=== PATIENT | male | born 1950 | race Native Hawaiian/Other Pacific Islander ===

== ENCOUNTER → 2017-07-30 | Outpatient (CLI) | payer MEDICARE, BC ==
[2017-07-30 09:31] LABS: Basophils # (A) 0.1 k/uL (0-0.2); Basophils % (A) 1 %; Eosinophils # (A) 0.3 k/uL (0-0.7); Eosinophils % (A) 6 %; HCT 43.1 % (39.0-53.0); HGB 14.1 gm/dL (13.0-17.5); Lymphocytes # (A) 1.6 k/uL (1.0-4.8); Lymphocytes % (A) 37 %; MCH 31.6 pg (25.0-35.0); MCHC 32.8 g/dL (31.0-37.0); MCV 96.3 fL (80.0-100.0); Mean Platelet Volume 7.2; Monocytes # (A) 0.2 k/uL (0-1.0); Monocytes % (A) 6 %; Neutrophils # (A) 2.1 k/uL (1.3-7.7); Neutrophils % (A) 49 %; Platelet Count 210 k/uL (150-450); RBC 4.47 m/uL (4.30-5.90); RDW 13.1 % (11.5-15.5); WBC 4.4 k/uL (3.8-10.6)
[2017-07-30 09:35] LABS: Appearance,Urine Clear (Clear); Bacteria,Urine Rare /hpf; Bilirubin,Urine Negative (Negative); Blood,Urine Small (Negative); Color,Urine Yellow; Glucose,Urine (UA) Negative (Negative); Ketones,Urine Negative (Negative); Leukocyte Esterase,Urine Negative (Negative); Mucus,Urine Rare /hpf; Nitrite,Urine Negative (Negative); PH, Urine 5.5 (5.0-8.0); Protein,Urine Negative (Negative); RBC,Urine 3 /hpf (0-5); Specific Gravity,Urine 1.012 (1.001-1.035); Urobilinogen,Urine <2.0 mg/dL (<2.0); WBC,Urine <1 /hpf (0-5)
[2017-07-30 10:12] LABS: ALT 36 U/L (21-72); AST 24 U/L (17-59); Cholesterol 145 mg/dL (<200); Creatine Kinase 138 U/L (55-170); HDL Cholesterol 51 mg/dL (40-60); LDL Cholesterol,Calculated 82 mg/dL (0-99); Triglycerides 60 mg/dL (<150)
[2017-07-30 17:09] LABS: Vitamin D 25 Hydroxy 31.3 ng/mL (30.0-100.0)
[2017-07-30 17:36] LABS: Hepatitis A Antibody IgM Non-Reactive (Non-Reactive); Hepatitis B Core IgM Non-Reactive (Non-Reactive)
[2017-07-30 18:19] LABS: HIV AB P24 Non-Reactive (Non-Reactive); HIV P24 AG Non-Reactive (Non-Reactive)
== END ==
LOC: LABWHC1 08:53
PROVIDERS: ATTEND Internal Medicine Interventional Cardiology
DX: E78.2 Mixed hyperlipidemia (principal); N40.1 Benign prostatic hyperplasia with lower urinary tract symptoms; E55.9 Vitamin D deficiency, unspecified; E78.00 Pure hypercholesterolemia, unspecified; Z11.59 Encounter for screening for other viral diseases
CPT/HCPCS: 36415; 80061; 80074; 81001; 82306; 82550; 84153; 84450; 84460; 85025; 87390

== ENCOUNTER → 2018-01-21 | Outpatient (CLI) | payer MEDICARE, BC ==
[2018-01-21 16:57] LABS: Albumin 4.2 g/dL (3.80-4.90); Anion Gap 6.4 mmol/L (4.00-12.00); Carbon Dioxide 28.6 mmol/L (21.6-31.8); Globulin 2.1 g/dL (2.1-3.7); LDL Cholesterol,Calculated 72.2 mg/dL (0.0-131.0); Potassium 4.2 mmol/L (3.5-5.5); Total Bilirubin 0.6 mg/dL (0.2-1.2); Total Protein 6.3 g/dL (6.2-8.2); VLDL Calculation 15.8 mg/dL (5.00-40.00)
== END | disposition home or self-care (01) ==
LOC: LABWHC1 08:11
PROVIDERS: ATTEND Internal Medicine Interventional Cardiology
DX: E78.2 Mixed hyperlipidemia (principal)
CPT/HCPCS: 36415; 80053; 80061

== ENCOUNTER → 2018-09-16 | Outpatient (CLI) | payer MEDICARE, BC | END | disposition home or self-care (01) | LOC: LABWHC1 08:12 | PROVIDERS: ATTEND Internal Medicine Interventional Cardiology | DX: E78.2 Mixed hyperlipidemia (principal) | CPT/HCPCS: 36415; 80061; 84450; 84460 ==

== ENCOUNTER → 2019-03-31 | Outpatient (CLI) | payer MEDICARE, BC ==
[2019-03-31 13:42] LABS: African American GFR (CKD) 80.1 (60.0-200.0); Albumin 4.4 g/dL (3.80-4.90); Albumin/Globulin Ratio 2.1 (1.60-3.17); Anion Gap 6.2 mmol/L (4.00-12.00); BUN/Creat Ratio 16.36 Ratio (12.00-20.00); Calcium 9.4 mg/dL (8.7-10.3); Carbon Dioxide 30.8 mmol/L (21.6-31.8); Chol/HDL Ratio 3.04; Globulin 2.1 g/dL (1.6-3.3); LDL Cholesterol,Calculated 85.4 mg/dL (0.0-131.0); Non-African American GFR(CKD) 69.1 (60.0-200.0); Potassium 4.2 mmol/L (3.5-5.5); Total Bilirubin 0.7 mg/dL (0.3-1.2); Total Protein 6.5 g/dL (6.2-8.2); VLDL Calculation 14.6 mg/dL (5.00-40.00)
== END | disposition home or self-care (01) ==
LOC: LABWHC1 09:04
PROVIDERS: ATTEND Nurse Practitioner Adult Health
DX: E78.2 Mixed hyperlipidemia (principal); I25.10 Atherosclerotic heart disease of native coronary artery without angina pectoris; I48.0 Paroxysmal atrial fibrillation
CPT/HCPCS: 36415; 80053; 80061

== ENCOUNTER → 2019-09-04 | Outpatient (CLI) | payer MEDICARE, BC ==
[2019-09-04 12:50] LABS: African American GFR (CKD) 72.1 (60.0-200.0); Albumin 4.2 g/dL (3.80-4.90); Anion Gap 9.2 mmol/L (4.00-12.00); BUN/Creat Ratio 17.5 Ratio (12.00-20.00); Calcium 8.8 mg/dL (8.7-10.3); Carbon Dioxide 24.8 mmol/L (21.6-31.8); Chol/HDL Ratio 3.19; Globulin 2.1 g/dL (1.6-3.3); LDL Cholesterol,Calculated 67.2 mg/dL (0.0-131.0); Non-African American GFR(CKD) 62.2 (60.0-200.0); Potassium 4.4 mmol/L (3.5-5.5); Total Bilirubin 0.6 mg/dL (0.2-1.2); Total Protein 6.3 g/dL (6.2-8.2); VLDL Calculation 26.8 mg/dL (5.00-40.00)
== END | disposition home or self-care (01) ==
LOC: LABWHC1 07:05
PROVIDERS: ATTEND Internal Medicine Interventional Cardiology
DX: E78.2 Mixed hyperlipidemia (principal)
CPT/HCPCS: 36415; 80053; 80061

== ENCOUNTER 2019-11-09 06:06 | Day surgery (SDC) | payer MEDICARE, BC ==
[2019-11-06 10:26] VITALS: BMI 23.3
[~2019-11-09 06:06] MED LIST: SODIUM CHLORIDE 0.9% 1,000 ML IV SCH
[2019-11-09 06:34] VITALS: TEMP 98.4
[2019-11-09] MEDS ORDERED: SODIUM CHLORIDE 0.9% 500 ML 500 ML IV ONE (06:41)
[2019-11-09 06:53] LABS: Potassium 3.9 mmol/L (3.5-5.1)
[2019-11-09] MEDS ORDERED: PROPOFOL 10 MG/ML 20 ML VIAL IV ONE (07:22)
[2019-11-09] MEDS: BENZOCAINE SPRAY 1 CAN TOPICAL ONE ×2 (07:28→07:44)
[2019-11-09] MEDS ORDERED: SODIUM CHLORIDE 0.9% 1,000 ML IV SCH (08:15)
[2019-11-09] MEDS ORDERED: SODIUM CHLORIDE 0.9% 1,000 ML IV ONE (08:41)
[2019-11-09] MEDS ORDERED: METOPROLOL TARTRATE 25 MG TAB PO SCH (09:00)
[2019-11-09] MEDS ORDERED: RIVAROXABAN 20 MG TAB PO SCH (09:00)
[2019-11-09] MEDS ORDERED: lisinopriL 10 MG TAB PO SCH (09:00)
[2019-11-09] MEDS ORDERED: NON FORMULARY DRUG (Aspirin [Adult Low Dose Aspirin Ec] 81 MG) PO SCH (09:00)
[2019-11-09] MEDS ORDERED: FLECAINIDE 50 MG TAB PO SCH (09:00)
[2019-11-09] MEDS ORDERED: LANSOPRAZOLE 15 MG PO SCH (09:00)
[2019-11-09] MEDS ORDERED: NON FORMULARY DRUG (Magnesium Oxide 250 MG) PO SCH (09:00)
--- NOTE | 2019-11-09 09:18 | ECHOT ---
TRANSESOPHAGEAL ECHOCARDIOGRAM INDICATION: Atrial fibrillation. PROCEDURE: After explaining the procedure to the patient, its risks and complications, his blood pressure, heart rate, O2 saturation was monitored. The throat was sprayed with Cetacaine. He received sedation per Anesthesia Department. The probe was introduced into the esophagus without difficulty. Images were obtained. Following that, the probe was removed. There was no immediate complication. FINDINGS: Biatrial enlargement was noted, spontaneous contrast was noted in the left atrium and left atrial appendage is normal. Left ventricular size and systolic function normal. The aortic valve revealed mild thickening of the aortic valve leaflets. The mitral valve appears to be normal. Left ventricular size and systolic function normal. The descending thoracic aorta appears to be normal. No pericardial effusion was noted, contrast bubble study revealed no shunting across the interatrial septum. Pulse wave and Color Doppler obtained, revealed mild to moderate mitral with mild tricuspid regurgitation. There was no shunting by color Doppler study. CONCLUSION: 1. Biatrial enlargement with normal appearance of left atrial appendage. 2. Normal left ventricular size and systolic function. 3. Mild to moderate mitral with mild tricuspid regurgitation. 4. No shunting across the interatrial septum. 5. Normal appearance of the descending thoracic aorta. MMODL / IJN: [id number] /
[2019-11-09 09:29] VITALS: RESP 16
--- NOTE | 2019-11-09 10:03 | CE ---
CARDIAC ELECTROPHYSIOLOGY REPORT INDICATION: Atrial fibrillation. PROCEDURE: After explaining the procedure to the patient, its risks and complications, after obtaining sedated state by the Anesthesia Department, synchronized biphasic cardioversion utilizing 200 joules was performed with jehovah's witness of sinus rhythm. Subsequently, the patient went back into atrial fibrillation. Another cardioversion was able to restore normal sinus rhythm, but that did not persist. There was no immediate complication. ELIECER / HERMILAN: [id number] / MTDD
[2019-11-09 10:11] VITALS: BP 141/89; PULSE 72
[2019-11-09] MEDS ORDERED: ATORVASTATIN 80 MG TAB PO SCH (21:00)
== END 2019-11-09 10:06 | disposition home or self-care (01) ==
LOC: CATHCVL 06:06
PROVIDERS: ATTEND Internal Medicine Interventional Cardiology
DX: I48.11 Longstanding persistent atrial fibrillation (principal); I08.1 Rheumatic disorders of both mitral and tricuspid valves; I10 Essential (primary) hypertension; I25.10 Atherosclerotic heart disease of native coronary artery without angina pectoris; E78.2 Mixed hyperlipidemia; Z79.82 Long term (current) use of aspirin; Z79.01 Long term (current) use of anticoagulants; Z79.899 Other long term (current) drug therapy; Z98.890 Other specified postprocedural states; Z87.891 Personal history of nicotine dependence; Z90.49 Acquired absence of other specified parts of digestive tract; Z95.5 Presence of coronary angioplasty implant and graft; K21.9 Gastro-esophageal reflux disease without esophagitis
CPT/HCPCS: 93312; 93320; 93325; 92960; 80048; J2704

== ENCOUNTER → 2019-11-21 | Day surgery (SDC) | payer MEDICARE, BC ==
[2019-11-20 08:18] VITALS: BMI 23.5
[~2019-11-21] MED LIST changes: +ASPIRIN 81 MG PO SCH; +ATORVASTATIN 80 MG TAB PO SCH; +FLECAINIDE 50 MG TAB PO SCH; +LACTATED RINGERS 1,000 ML IV SCH; +LIDOCAINE 1% INJ 10MG/ML (20 ML MDV) ONE; +MAGNESIUM OXIDE 400 MG TAB PO SCH; +PANTOPRAZOLE 40 MG TABLET PO SCH; +PROPOFOL 10 MG/ML 20 ML VIAL IV ONE; +RIVAROXABAN 20 MG TAB PO SCH; +lisinopriL 10 MG TAB PO SCH
[2019-11-21 06:31] VITALS: TEMP 98.3
--- NOTE | 2019-11-21 07:41 | CE ---
CARDIAC ELECTROPHYSIOLOGY REPORT CARDIOVERSION PROCEDURE NOTE: INDICATION: Atrial fibrillation. PROCEDURE: After explaining the procedure to the patient, its risks and the complications and after obtaining sedated state by the anesthesia department, a synchronized biphasic cardioversion using 200 joules was performed with mandaeism of normal sinus rhythm. There was no immediate complication. ELIECER / ROSELINE: [id number] /
[2019-11-21 07:46] VITALS: RESP 16
[2019-11-21 10:10] VITALS: BP 139/92; PULSE 56
== END | disposition home or self-care (01) ==
LOC: CATHCVL 06:04
PROVIDERS: ATTEND Internal Medicine Interventional Cardiology
DX: I48.11 Longstanding persistent atrial fibrillation (principal); I25.10 Atherosclerotic heart disease of native coronary artery without angina pectoris; E78.2 Mixed hyperlipidemia; I10 Essential (primary) hypertension; K21.9 Gastro-esophageal reflux disease without esophagitis; Z79.82 Long term (current) use of aspirin; Z79.01 Long term (current) use of anticoagulants; Z79.899 Other long term (current) drug therapy; Z90.49 Acquired absence of other specified parts of digestive tract; Z95.5 Presence of coronary angioplasty implant and graft; Z98.890 Other specified postprocedural states; Z87.891 Personal history of nicotine dependence
CPT/HCPCS: 92960; J2001; J2704

== ENCOUNTER 2020-02-12 08:08 | Day surgery (SDC) | payer MEDICARE, BC ==
[2020-02-06 13:09] VITALS: BMI 23.8
[~2020-02-12 08:08] MED LIST changes: -ASPIRIN 81 MG PO SCH; -ATORVASTATIN 80 MG TAB PO SCH; -FLECAINIDE 50 MG TAB PO SCH; -LACTATED RINGERS 1,000 ML IV SCH; -LIDOCAINE 1% INJ 10MG/ML (20 ML MDV) ONE; -MAGNESIUM OXIDE 400 MG TAB PO SCH; -PANTOPRAZOLE 40 MG TABLET PO SCH; -PROPOFOL 10 MG/ML 20 ML VIAL IV ONE; -RIVAROXABAN 20 MG TAB PO SCH; -lisinopriL 10 MG TAB PO SCH
[2020-02-12] MEDS ORDERED: SODIUM CHLORIDE 0.9% 1,000 ML IV ONE (08:22)
[2020-02-12 08:39] LABS: Basophils # (A) 0.1 k/uL (0-0.2); Basophils % (A) 1 %; Eosinophils # (A) 0.3 k/uL (0-0.7); Eosinophils % (A) 4 %; HCT 47.1 % (39.0-53.0); HGB 15.9 gm/dL (13.0-17.5); Lymphocytes # (A) 2.5 k/uL (1.0-4.8); Lymphocytes % (A) 34 %; MCH 31.8 pg (25.0-35.0); MCHC 33.6 g/dL (31.0-37.0); MCV 94.6 fL (80.0-100.0); Mean Platelet Volume 7.7; Monocytes # (A) 0.4 k/uL (0-1.0); Monocytes % (A) 5 %; Neutrophils % (A) 54 %; Platelet Count 225 k/uL (150-450); RBC 4.98 m/uL (4.30-5.90); RDW 12.6 % (11.5-15.5); WBC 7.5 k/uL (3.8-10.6)
[2020-02-12 09:03] LABS: Calcium 8.8 mg/dL (8.4-10.2); Potassium 3.9 mmol/L (3.5-5.1)
[2020-02-12] MEDS ORDERED: HEPARIN SODIUM,PORCINE 10,000 UNIT/ML 1 ML VIAL ONE (11:43)
[2020-02-12] MEDS ORDERED: GLYCOPYRROLATE 0.2 MG/ML 2 ML VIAL ONE (11:43)
[2020-02-12] MEDS ORDERED: SUCCINYLCHOLINE CHLORIDE 100 MG/5 ML SYR IV ONE (11:43)
[2020-02-12] MEDS ORDERED: PHENYLEPHRINE-0.9% NACL SYG 1 MG/10 ML SYRINGE ONE (11:43)
[2020-02-12] MEDS ORDERED: PROPOFOL 10 MG/ML 20 ML VIAL IV ONE (11:43)
[2020-02-12] MEDS ORDERED: FUROSEMIDE 10 MG/ML 2 ML VIAL ONE (11:43)
[2020-02-12] MEDS ORDERED: PROTAMINE SULFATE 10 MG/ML 25 ML VIAL IV ONE (11:43)
[2020-02-12] MEDS ORDERED: fentaNYL (PF) 50 MCG/ML 2 ML AMP ONE (11:43)
[2020-02-12] MEDS ORDERED: MIDAZOLAM 2 MG/2 ML VIAL ONE (11:43)
[2020-02-12] MEDS ORDERED: LIDOCAINE 1% INJ 10MG/ML (20 ML MDV) ONE (12:16)
[2020-02-12] MEDS ORDERED: LIDOCAINE 1% INJ 10MG/ML (20 ML MDV) SQ ONE (12:23)
[2020-02-12] MEDS ORDERED: HEPARIN SOD,PORK IN 0.45% NACL 25,000 UNIT in 0.45% NACL 1 250ML.BAG IV ONE (12:28)
[2020-02-12] MEDS ORDERED: HEPARIN SODIUM (1,000 UNIT/ML) 1,000 UNIT in SODIUM CHLORIDE 0.9% 1,000 ML IRRIGATION ONE (12:54)
[2020-02-12] MEDS ORDERED: IOPAMIDOL-370 100ML BTL INJ ONE (14:33)
[2020-02-12] MEDS ORDERED: PROTAMINE SULFATE 10 MG/ML 5 ML VIAL IV ONE (15:40)
[2020-02-12] MEDS ORDERED: HYDROcodone/APAP 5-325MG 1 EACH TAB PO PRN (15:55)
[2020-02-12] MEDS ORDERED: ACETAMINOPHEN IV (For NPO) 1,000 MG in EMPTY BAG 1 BAG IVPB ONE (15:55)
[2020-02-12] MEDS ORDERED: ACETAMINOPHEN TAB 325 MG TAB PO PRN (15:55)
--- NOTE | 2020-02-12 16:07 | P.EPPROC ---
- EP Procedure Note Electrophysiology Procedure Note: Diagnosis Atrial fibrillation, symptomatic, refractory to therapy Persistent Result No left atrial appendage mass seen on intracardiac echo Successful A. fib ablation/pulmonary vein isolation of all veins using cryo- ablation Complete entrance block in all 4 veins confirmed No evidence for phrenic nerve injury Linear ablation along the posterior septum with complete block along the line Linear ablation along the roof with complete block along the line Esophageal deflection YES Patient remained in atrial fibrillation following PVI and linear A. fib ablation of the septum and the roof Mild organization of A. fib Electrical cardioversion with a synchronized shock across the chest YES Procedure details Patient was brought to the EP lab in a fasting state. Written informed consent was obtained prior to the procedure. Procedure performed under general anesthesia After initial muscle relaxant use, muscle relaxants were not given thereafter in order to assess phrenic nerve during procedure. Patient prepped and draped as per protocol Full cryo-set up with standard preparation of the cryoablation tools done. Femoral Venous access obtained on the right and left groins Venous and arterial Sheaths placed. Diagnostic catheters for the high right atrium, phrenic nerve stimulation and pacing, His bundle, RV and coronary sinus placed Intracardiac echo catheter placed. Long sheath placed in the right atrium Left and right transseptal catheterization performed under intracardiac echo guidance. Intravenous heparin with aCT above 300 Later, catheter positioning and balloon positioning in the left atrium, under intracardiac echo guidance Diagnostic EP study with Drug infusion Coronary sinus pacing and recording Baseline measurements Sinus cycle length 1440, W[place] interval 163 ms, QRS 92 ms AH 60 ms, HV 31 ms Atrial pacing performed from the high right atrium and the coronary sinus Sinus node recovery time 1639 ms. Corrected sinus recovery time normal AV node Wenckebach block 410 ms RV pacing, VAAV Wenckebach block 460 ms Transseptal catheterization performed RA pressure 9/3/6 LA pressure 14/4/9 Transseptal catheterization performed with standard sheath. The cryoablation sheath was then placed with an over the wire exchange without any acute complications. All 4 pulmonary veins were isolated in the following sequence: Left superior followed by left inferior followed by right superior followed by right inferior The cryo-ablation balloon was placed at the os of each vein 1.5 mL of IV dye was injected to confirm an occluded vein Goal during cryoablation was to achieve complete occlusion of the pulmonary vein, achieve -30 degrees C at 30 seconds and achieve -40 degrees C at 60 seconds and a time to effect of less than 60-90 seconds, . If not the balloon was repositioned to obtain this result After completion of Cryoblation with durations from 180-240 seconds, entrance block was confirmed with the Attain circular catheter in a roving fashion around the antrum of the pulmonary veins Phrenic nerve pacing was performed from the SVC, right innominate vein area and diaphragm voltage was monitored. Diaphragmatic contractions were also monitored manually for strength of contraction. Parameter goals for each cryo freeze Complete occlusion of the appropriate vein -30 degrees C by 30 seconds -40 degrees C by 60 seconds Minimum between minus 40-55 degrees C Thaw time greater than 10 seconds Balloon visualized by intracardiac echo The esophagus was intubated. Esophageal Temperature monitoring with a CIRCA catheter formed. Esophageal deflection for hypothermia of the esophagus below 30 degrees C Left superior pulmonary vein, common left-sided vein Complete isolation, entrance block Left inferior pulmonary vein, common left-sided vein Complete isolation, entrance block Right superior pulmonary vein, during phrenic nerve pacing Complete isolation, entrance block Right inferior pulmonary vein, during phrenic nerve pacing Complete isolation, entrance block At the end of the procedure the Achieve catheter was once again used to check for entrance block Phrenic nerve stimulation was performed to confirm diaphragmatic stimulation the end of the procedure Cine fluoroscopy was performed at the very end of the procedure to confirm movement of both diaphragms with inspiration and expiration 3-D electro anatomic mapping of the left atrium Complete isolation of all 4 pulmonary veins informed with Holbrook mapping Linear ablation along fractionated electrograms along the posterior septum just behind the transseptal site. RF ablation was performed from the roof down to the lower septum and connected to the RIP the. The segment posterior to this was completely isolated Linear ablation along the roof performed along fractionated signals Complete block demonstrated Complete scar demonstrated At the end of the procedure the patient was extubated Heparin was reversed Venous sheaths were removed and hemostasis assured Procedures performed (PVI - CRYO Ablation) Diagnostic EP study CS pacing and recording Left and right transseptal catheterization 3D mapping) Intracardiac echocardiography Pulmonary vein isolation with transseptal and comprehensive EPS, 29500 Left atrial roof line, +67020 Linear ablation, left atrium, septum, +[id number] Electrical cardioversion with a synchronized shock across the chest [id number]
--- NOTE | 2020-02-12 16:09 | P.PRLE ---
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 He has a fairly dilated left atrium. An persistent atrial fibrillation. He will continue xarelto and all his other cardiac medications and will continue to follow with you and Dr. Delaney as before Thank you for entrusting me with the care of the patient Warm regards Sincerely Edil Burns
[2020-02-12] MEDS ORDERED: LACTATED RINGERS 1,000 ML IV ONE (16:28)
[2020-02-12] MEDS ORDERED: ATORVASTATIN 80 MG TAB PO SCH (21:00)
[2020-02-12] MEDS ORDERED: RIVAROXABAN 20 MG TAB PO SCH (21:00)
[2020-02-13] MEDS ORDERED: PANTOPRAZOLE 40 MG TABLET PO SCH (07:30)
[2020-02-13] MEDS ORDERED: lisinopriL 10 MG TAB PO SCH (09:00)
[2020-02-13] MEDS ORDERED: ASPIRIN 81 MG PO SCH (09:00)
[2020-02-13 09:04] VITALS: BP 113/69; PULSE 60; RESP 16; TEMP 98.3
--- NOTE | 2020-02-14 10:12 | P.DS ---
Providers Attending physician: Edil Burns Primary care physician: Navi Holder MD Hospital Course: Patient evaluated on February 12, the day following his A. fib ablation Patient is doing well. No chest discomfort no dizziness lightheadedness no palpitations. His groins of healed well no hematoma no tenderness His throat is slightly sore but he has no swallowing problems no dysphagia no odynophagia On examination he is afebrile 98.3F, pulse rate in the 60s normal respirations Blood pressure 115 07 4 mmHg Impression Persistent atrial fibrillation Dilated left atrium Status post PVI and linear ablation of the left atrium in the posterior septum and left atrial roof Patient remained in a slightly more organized atrial fibrillation thereafter Electrical cardioversion performed in sinus rhythm restored Plan Continue anticoagulation until current medications and follow with Dr. Delaney in a week Patient Condition at Discharge: Stable Plan - Discharge Summary Discharge Rx Participant: No New Discharge Prescriptions: Continue RX: Lansoprazole [Prevacid] 15 mg PO DAILY RX: Atorvastatin [Lipitor] 80 mg PO HS #30 tab RX: lisinopriL [Zestril] 10 mg PO DAILY #30 tab RX: Nitroglycerin Sl Tabs [Nitrostat] 0.4 mg SUBLINGUAL Q5M PRN #25 tab PRN Reason: Chest Pain RX: Rivaroxaban [Xarelto] 20 mg PO HS RX: Magnesium Oxide [Mag-Ox] 250 mg PO DAILY RX: Aspirin [Adult Low Dose Aspirin EC] 81 mg PO DAILY Metoprol Tartrate 1 tab PO BID Discharge Medication List RX: Lansoprazole [Prevacid] 15 mg PO DAILY 12/24/15 [History] RX: Atorvastatin [Lipitor] 80 mg PO HS #30 tab 12/26/15 [Rx] RX: Nitroglycerin Sl Tabs [Nitrostat] 0.4 mg SUBLINGUAL Q5M PRN #25 tab 12/26/15 [Rx] RX: lisinopriL [Zestril] 10 mg PO DAILY #30 tab 12/26/15 [Rx] RX: Aspirin [Adult Low Dose Aspirin EC] 81 mg PO DAILY 11/06/19 [History] RX: Magnesium Oxide [Mag-Ox] 250 mg PO DAILY 11/06/19 [History] RX: Rivaroxaban [Xarelto] 20 mg PO HS 11/06/19 [History] Metoprol Tartrate 1 tab PO BID 02/06/20 [History] Follow up Appointment(s)/Referral(s): Sofia Delaney MD [STAFF PHYSICIAN] - 02/20/20 10:15 am Patient Instructions/Handouts: A-fib (Atrial Fibrillation) (DC), Cardiac Ablation (DC) Activity/Diet/Wound Care/Special Instructions: Post EP study - Ablation instructions 1. Keep access sites dry for 2 days. 2. No heavy lifting or straining for 2 days. 3. Avoid bending the hips repeatedly for 2 days. 4. You may go up and down stairs slowly Call if the following is noted 1. Bleeding, increasing swelling or pain at the access sites. 2. Increasing chest discomfort, especially upon taking a deep breath. 3. Increasing shortness of breath, at rest or with exertion. 4. Undue cough / phlegm 5. Difficulty or pain while swallowing. 6. Pain or change in color in the extremities. 7. Fever, chills, rigors. 8. Increasing headache or neurologic symptoms. 9. Dizziness, fainting, palpitations Do not stop XareltoFollow Dr. Delaney/nurse practitioner Maureen in 1-2 weeks
== END 2020-02-13 14:02 ==
LOC: CATHEP 08:08 → 1SOBS 16:38 → CATHEP 02-13 14:02
PROVIDERS: ATTEND Internal Medicine Clinical Cardiac Electrophysiology
DX: I48.19 Other persistent atrial fibrillation (principal); I51.7 Cardiomegaly; I10 Essential (primary) hypertension; E78.5 Hyperlipidemia, unspecified; I25.2 Old myocardial infarction; Z95.5 Presence of coronary angioplasty implant and graft; Z87.891 Personal history of nicotine dependence; F41.9 Anxiety disorder, unspecified; K21.9 Gastro-esophageal reflux disease without esophagitis; Z79.01 Long term (current) use of anticoagulants; Z79.82 Long term (current) use of aspirin; Z79.899 Other long term (current) drug therapy
CPT/HCPCS: 85347; 93623; 93662; 93613; 93656; 93657; 80048; 85025; C1769 ×5; C1894 ×2; C1730 ×2; C1759; C1893; C1733; C1766; C1732; J2720; J2250; J1644 ×3; J1940; J2001; J3010; J0131; J2370; J0330; J2704; Q9967

== ENCOUNTER → 2020-03-06 | Outpatient (CLI) | payer MEDICARE, BC ==
[2020-03-06 14:48] LABS: African American GFR (CKD) 89.2 (60.0-200.0); Albumin/Globulin Ratio 2.11 (1.60-3.17); Anion Gap 4.9 mmol/L (4.00-12.00); Calcium 8.7 mg/dL (8.7-10.3); Carbon Dioxide 27.1 mmol/L (21.6-31.8); Chol/HDL Ratio 3.2; Globulin 1.9 g/dL (1.6-3.3); Potassium 4.2 mmol/L (3.5-5.5); Total Bilirubin 0.8 mg/dL (0.3-1.2); Total Protein 5.9 g/dL (6.2-8.2)
== END | disposition home or self-care (01) ==
LOC: LABWHC1 07:53
PROVIDERS: ATTEND Nurse Practitioner Adult Health
DX: I10 Essential (primary) hypertension (principal); E78.2 Mixed hyperlipidemia
CPT/HCPCS: 36415; 80053; 80061

== ENCOUNTER 2023-06-27 06:24 | Day surgery (SDC) | payer MEDICARE, BC ==
[2023-06-27 06:59] VITALS: BP 158/82; PULSE 66; RESP 18; TEMP 97.3
[2023-06-27] MEDS: SIMETHICONE 40 MG/0.6 ML DROPS 2,000 MG/30 ML BOTTLE PO ONE (07:15)
== END 2023-06-27 07:28 | disposition home or self-care (01) ==
LOC: ORWHC2ENDO 06:24
PROVIDERS: ATTEND Internal Medicine Gastroenterology
DX: K92.1 Melena (principal)
CPT/HCPCS: 91110

== ENCOUNTER → 2024-05-28 | Outpatient (CLI) | payer MEDICARE, BC ==
[2024-05-28 20:46] LABS: HCT 43.1 % (39.6-50.0); HGB 14.4 g/dL (13.0-17.0); MCH 31.9 pg (27.0-32.0); MCHC 33.4 g/dL (32.0-37.0); MCV 95.4 FL (80.0-97.0); Mean Platelet Volume 11.2 FL (9.5-12.2); NRBC Per 100 WBC 0 X 10*3/uL (0.00-0.01); Platelet Count 204 X 10*3/uL (140-440); RBC 4.52 X 10*6/uL (4.40-5.60); RDW 13.1 % (11.5-14.5); WBC 8.86 X 10*3/uL (4.50-10.00)
[2024-05-28 21:01] LABS: Blood Urea Nitrogen 14.8 mg/dL (9.0-27.0); Carbon Dioxide 28.4 mmol/L (21.6-31.8); Chloride 107 mmol/L (96-109); Potassium 4.2 mmol/L (3.5-5.5); Sodium 145 mmol/L (135-145)
== END | disposition home or self-care (01) ==
LOC: LABPAT 15:27
PROVIDERS: ATTEND Internal Medicine Interventional Cardiology
DX: Z01.812 Encounter for preprocedural laboratory examination (principal); R07.9 Chest pain, unspecified
CPT/HCPCS: 80051; 82565; 84520; 85027

== ENCOUNTER 2024-06-07 05:37 | Day surgery (SDC) | payer MEDICARE, BC ==
[2024-06-05 12:09] VITALS: BMI 26.7
[2024-06-07] MEDS ORDERED: NITROGLYCERIN SL TABS 0.4 MG TAB SUBLINGUAL PRN (05:41)
[2024-06-07] MEDS ORDERED: ALPRAZolam 0.5 MG TAB PO PRN (05:41)
[2024-06-07] MEDS ORDERED: ALPRAZolam 0.25 MG TAB PO PRN (05:41)
[2024-06-07] MEDS: SODIUM CHLORIDE 0.9% 1,000 ML in EMPTY BAG 1 BAG IV SCH (06:03)
[2024-06-07] MEDS: IV FLUID CONTINUATION 1,000 ML IV ONE ×2 (06:04→10:00)
[2024-06-07 06:13] VITALS: RESP 16; TEMP 98
[2024-06-07] MEDS ORDERED: ASPIRIN 325 MG TAB PO ONE (07:00)
[2024-06-07] MEDS: HEPARIN SODIUM,PORCINE 10,000 UNIT in SODIUM CHLORIDE 0.9% 1,000 ML IRRIGATION PRN (07:42)
[2024-06-07] MEDS: HEPARIN SODIUM,PORCINE (1 ML) 2,500 UNIT in SODIUM CHLORIDE 0.9% 250 ML IRRIGATION PRN (07:42)
[2024-06-07] MEDS: fentaNYL (PF) 50 MCG/1 ML VIAL IVP ONE (07:51)
[2024-06-07] MEDS: MIDAZOLAM 2 MG/2 ML VIAL IVP ONE (07:51)
[2024-06-07] MEDS: LIDOCAINE 1% INJ 10MG/ML (20 ML MDV) SQ ONE (07:51)
[2024-06-07] MEDS: VERAPAMIL SYRINGE (5 MG/10 ML) INTRAARTER ONE (07:53)
[2024-06-07] MEDS: HEPARIN SODIUM 1,000 UN/ML (10ML VL) IVP ONE (07:57)
[2024-06-07] MEDS: IOPAMIDOL-370 100ML BTL INJ ONE (08:04)
[2024-06-07] MEDS ORDERED: RX INFO: IV CONTRAST WAS GIVEN 1 EACH MISC MISCELLANE PRN (08:15)
[2024-06-07] MEDS ORDERED: SODIUM CHLORIDE 0.9% 1,000 ML IV SCH (08:15)
[2024-06-07] MEDS ORDERED: ASPIRIN 81 MG PO PRN (08:16)
--- NOTE | 2024-06-07 08:30 | P.CARDCATH ---
Date of Procedure: 06/07/24 Description of Procedure: Cardiac Catheterization: The patient is a 74-year-old male with known history of hypertension, hyperlipidemia, prior history of CAD and PCI who has been complaining of episodes of chest discomfort and had an abnormal MPI. Recommendations were made regarding cardiac catheterization, the risks and the complications were discussed with the patient who is in full understanding and agreement. Procedure Description: Patient was brought to [facility] [employer] in fasting semi-sedated state after receiving Fentanyl and Benadryl achieiving moderate conscious sedated state. Using Xylocaine Anesthesia and modified Seldinger technique, a 6-Filipino sheath was introduced in the right radial artery . Subsequently, selective coronary angiography was performed using a 5-Filipino 3.5 bend Marisela catheter. Multiple views of the coronary artery including hemiaxial views were obtained. The 5 Filipino pigtail catheter was used to cross the aortic valve and LVEDP was calculated. Following that, catheter and sheath were removed. Hemostasis was obtained with deployment of vascular band . There was no immediate complication. Patient was returned to room in stable condition. Of note, the patient received a total of 4500 units of intravenous heparin as well as intra-arterial verapamil. Findings: Left main: This is a large size vessel, bifurcating into LAD and left circumflex, left main has no obstructive disease LAD: This is a large size vessel, reaching to the apex, tapers down in the distal third. Gives rise to a moderately sized diagonal branch in the midsegment. The LAD has mild intimal disease in the midsegment with no high- grade stenosis. Left circumflex: This is a nondominant large size vessel, giving rise to 2 obtuse marginal branch the second 1 is large in caliber. The left circumflex has mild disease in the second obtuse marginal branch with no evidence of high- grade stenosis. RCA: This is a dominant vessel bifurcating distally to PDA and PLV the stented segment in the mid RCA is patent with mild in-stent restenosis of 20 to 30% with no significant progression of disease compared with 2021 Left Ventriculogram: Not performed Hemodynamics: There was no gradient across aortic valve, LVEDP was 12-14 mmHg Conclusion: 1. Mild obstructive disease in the LAD and left circumflex 2. Patent stent in the RCA with mild in-stent restenosis 3. Right dominance 4. Normal LVEDP Recommendations: I have recommended to continue medical therapy with the aggressive coronary ri sks modification that had been initiated, I see no evidence of significant progression of disease compared to 2021. The findings and the recommendations were discussed with the patient and the family and they were in full understanding and agreement. Duration of sedation is 15 minutes.
[2024-06-07] MEDS ORDERED: FAMOTIDINE 20 MG TAB PO SCH (09:00)
[2024-06-07] MEDS ORDERED: LOSARTAN 50 MG TAB PO SCH (09:00)
[2024-06-07] MEDS ORDERED: PANTOPRAZOLE 40 MG TABLET PO SCH (09:00)
[2024-06-07] MEDS ORDERED: NON FORMULARY DRUG (Magnesium Oxide 250 MG Tab) PO SCH (09:00)
[2024-06-07] MEDS ORDERED: METOPROLOL TARTRATE 25 MG TAB PO SCH (09:00)
[2024-06-07 10:48] VITALS: PULSE 55
[2024-06-07 11:33] VITALS: BP 115/65
[2024-06-07] MEDS ORDERED: ATORVASTATIN 80 MG TAB PO SCH (21:00)
[2024-06-07] MEDS ORDERED: EZETIMIBE 10 MG TAB PO SCH (21:00)
== END 2024-06-07 11:34 | disposition home or self-care (01) ==
LOC: CATHCVL 05:37
PROVIDERS: ATTEND Internal Medicine Interventional Cardiology
DX: T82.855A Stenosis of coronary artery stent, initial encounter (principal); I25.10 Atherosclerotic heart disease of native coronary artery without angina pectoris; I48.11 Longstanding persistent atrial fibrillation; I10 Essential (primary) hypertension; E78.2 Mixed hyperlipidemia; I34.0 Nonrheumatic mitral (valve) insufficiency; G47.33 Obstructive sleep apnea (adult) (pediatric); K21.9 Gastro-esophageal reflux disease without esophagitis; Z79.01 Long term (current) use of anticoagulants; Z79.899 Other long term (current) drug therapy; Z87.891 Personal history of nicotine dependence
CPT/HCPCS: 93458; C1894; C1769; J2250; J1644 ×3; J2003; Q9967; J3010